=== PATIENT | female | born 1955 | race Caucasian/White ===

== ENCOUNTER 2018-06-28 13:50 | Inpatient (IN) | payer MEDICARE, MEDICAID ==
[~2018-06-28] VITALS: Ht 170.2 cm; Wt 79.8 kg
[~2018-06-28 13:50] MED LIST: CYCL10TA7 MT; DUR12; ESTR0.6264 MT; HYDR-4009 MT; LEVO137T32 MT; NYSTATIN PO; P20 PO; PANT40TA4 MT; POTA10CA42 MT; PROM25TA13 MT; TC025U80 TP
[2018-06-28] MEDS ORDERED: LORAZEPAM 2MG/ML CPJ IV ONE ×2 (14:15→18:00)
[2018-06-28] MEDS ORDERED: MORPHINE SULFATE 2 MG/ML CPJ (NOT FOR IM USE) IV ONE (14:15)
[2018-06-28] MEDS ORDERED: DICYCLOMINE HCL 10MG CAPSULE PO ONE (15:00)
[2018-06-28] MEDS ORDERED: MAGNESIUM/ALUMINUM HYDROXIDE/SIMETHICONE 30ML UDC PO ONE (15:00)
[2018-06-28] MEDS ORDERED: VISCOUS LIDOCAINE 2% 15 ML UDC MM PRN (15:00)
[2018-06-28 15:17] LABS: BASOPHILS % 0.7 % (0.0-2.0); EOSINOPHILS % 0.2 % (0.0-5.0); HEMATOCRIT. 41.8 % (36.0-48.0); HEMOGLOBIN. 13.5 g/dL (12.0-16.0); MEAN CORPUSCULAR HEMOGLOBIN 28.2 pg (28.0-32.0); MEAN CORPUSCULAR VOLUME 87.1 fL (81.0-99.0); MEAN PLATELET VOLUME 8.7 fl (7.4-10.4); MONOCYTES % 5.7 % (2.0-8.0); NEUTROPHILS % 79.4 % (40.0-76.0); PLATELET 375 x1000/uL (130-400); RED CELL DISTRIBUTION WIDTH 14.2 % (11.6-14.6)
[2018-06-28 15:33] LABS: CHLORIDE 106 mEq/L (98-107)
[2018-06-28 15:37] LABS: ETHANOL BLOOD < 10 mg/dL
[2018-06-28] MEDS ORDERED: HYDROCODONE/ACETAMINOPHEN 5/325MG TABLET PO ONE (17:15)
[2018-06-28 17:25] LABS: CLARITY URINE CLEAR (CLEAR); COLOR URINE YELLOW (YELLOW); KETONES URINE NEGATIVE (NEGATIVE); LEUKOCYTE ESTERASE URINE TRACE (NEGATIVE); NITRITE URINE NEGATIVE (NEGATIVE); OCCULT BLOOD URINE NEGATIVE (NEGATIVE); PROTEIN URINE NEGATIVE (NEGATIVE); SPECIFIC GRAVITY URINE 1.019 (1.005-1.030); UROBILINOGEN URINE 0.2 E.U./dL (0.2-1.0)
[2018-06-28 17:34] LABS: *AMPHETAMINES SCREEN URINE NEGATIVE (NEGATIVE); *BARBITURATES SCREEN URINE NEGATIVE (NEGATIVE); *BENZODIAZEPINES SCREEN URINE NEGATIVE (NEGATIVE); *COCAINE SCREEN URINE NEGATIVE (NEGATIVE); METHADONE URINE SCREEN NEGATIVE (NEGATIVE)
[2018-06-28 17:35] LABS: CANNABINOID URINE SCREEN NEGATIVE (NEGATIVE); OPIATES URINE SCREEN PRESUMTIVE POSITIVE (NEGATIVE); PHENCYCLIDINE URINE SCREEN NEGATIVE (NEGATIVE)
[2018-06-28] MEDS ORDERED: IBUPROFEN 600MG TABLET PO ONE (18:00)
[2018-06-28] MEDS ORDERED: CLONIDINE 0.1MG TABLET PO PRN (19:45)
[2018-06-28] MEDS ORDERED: ONDANSETRON HCL 4MG/2ML INJ IV PRN (21:51)
[2018-06-28] MEDS ORDERED: HYDROCODONE/ACETAMINOPHEN 10/325MG TABLET PO PRN (21:52)
[2018-06-28 22:00] VITALS: BP 110/71
[2018-06-28] MEDS ORDERED: FURO-151 PO (22:07)
[2018-06-28 22:14] VITALS: BP 110/71
[2018-06-28] MEDS: MORPHINE SULFATE 4 MG/ML CPJ (NOT FOR IM USE) IV PRN (23:29)
[2018-06-28] MEDS: LORAZEPAM 2MG/ML CPJ IV PRN (23:29)
[2018-06-29 04:00] VITALS: BP 94/67
[2018-06-29 08:00] VITALS: BP 118/78
[2018-06-29] MEDS: LORAZEPAM 2MG/ML CPJ IV PRN ×2 (08:22→15:22)
[2018-06-29] MEDS: MORPHINE SULFATE 4 MG/ML CPJ (NOT FOR IM USE) IV PRN ×5 (08:22→23:39)
[2018-06-29 09:48] LABS: BASOPHILS % 1.1 % (0.0-2.0); HEMATOCRIT. 41.7 % (36.0-48.0); HEMOGLOBIN. 13.5 g/dL (12.0-16.0); LYMPHOCYTES % 38.8 % (20.0-50.0); MEAN CORPUSCULAR HEMOGLOBIN 28.5 pg (28.0-32.0); MEAN CORPUSCULAR VOLUME 87.6 fL (81.0-99.0); MEAN PLATELET VOLUME 9.3 fl (7.4-10.4); MONOCYTES % 9.4 % (2.0-8.0); NEUTROPHILS % 47.7 % (40.0-76.0); PLATELET 294 x1000/uL (130-400); RED BLOOD CELL COUNT 4.75 mill/uL (4.2-5.4); RED CELL DISTRIBUTION WIDTH 14.1 % (11.6-14.6)
[2018-06-29 10:11] LABS: CHLORIDE 106 mEq/L (98-107)
[2018-06-29] MEDS: LEVOTHYROXINE SODIUM 137MCG TABLET PO SCH (10:30)
[2018-06-29] MEDS ORDERED: LIDOCAINE HCL 1% 20ML VIAL (Pyxis) INJ ONE (10:42)
[2018-06-29 12:00] VITALS: BP 98/65
[2018-06-29] MEDS ORDERED: PNEUMOCOCCAL 23-VAL P-SAC VAC 0.5 ML IM ONE (12:00)
[2018-06-29] MEDS: PREDNISONE 20MG TABLET PO SCH (12:30)
[2018-06-29 16:00] VITALS: BP 100/74
[2018-06-29 19:33] VITALS: BP 102/61
[2018-06-30 00:59] VITALS: BP 85/51
[2018-06-30] MEDS: MORPHINE SULFATE 4 MG/ML CPJ (NOT FOR IM USE) IV PRN ×2 (03:36→08:10)
[2018-06-30 04:00] VITALS: BP 98/59
[2018-06-30 08:00] VITALS: BP 97/64
[2018-06-30] MEDS: LEVOTHYROXINE SODIUM 137MCG TABLET PO SCH (08:09)
[2018-06-30] MEDS: LORAZEPAM 2MG/ML CPJ IV PRN (08:09)
[2018-06-30] MEDS: PREDNISONE 20MG TABLET PO SCH (08:09)
[2018-06-30 09:56] VITALS: BP 97/64
[2018-07-22] MEDS ORDERED: FENT1PAT3 TP (01:39)
[2018-07-22] MEDS ORDERED: PRED10TA MT (01:39)
== END 2018-06-30 10:40 | disposition home or self-care (01) | DRG 206 ==
LOC: ER 13:50 → EDBEDREQ 16:44 → EDBEDREQTM 16:44 → 7WST 16:58 → EDBEDREQ 17:01 → SUPCPDRO 19:40 → ENRESERV 19:56
PROVIDERS: ADMIT Hospitalist; ATTEND Hospitalist
PROC: 02HV33Z Insertion of Infusion Device into Superior Vena Cava, Percutaneous Approach (ICD-10-PCS; principal; 2018-06-29)
PROC: B5181ZA Fluoroscopy of Superior Vena Cava using Low Osmolar Contrast, Guidance (ICD-10-PCS; 2018-06-29)
PROC: B548ZZA Ultrasonography of Superior Vena Cava, Guidance (ICD-10-PCS; 2018-06-29)
DX: M94.0 Chondrocostal junction syndrome [Tietze] (principal); I25.110 Atherosclerotic heart disease of native coronary artery with unstable angina pectoris; E44.1 Mild protein-calorie malnutrition; G89.4 Chronic pain syndrome; E11.9 Type 2 diabetes mellitus without complications; M19.90 Unspecified osteoarthritis, unspecified site; E03.9 Hypothyroidism, unspecified; M79.7 Fibromyalgia; Z90.710 Acquired absence of both cervix and uterus; Z88.8 Allergy status to other drugs, medicaments and biological substances; Z88.0 Allergy status to penicillin; Z88.6 Allergy status to analgesic agent; Z91.013 Allergy to seafood; Z79.899 Other long term (current) drug therapy; Z88.2 Allergy status to sulfonamides
CPT/HCPCS: 36415; 36569; 71045; 76937; 77001; 80053; 80305; 81003; 82962; 84484; 85025; 93005; 93306; 96374; 96375; 99285; C1725; C1893; G0482; J2060; J2270; J3490; J7512

== ENCOUNTER 2018-08-14 12:56 | Inpatient (IN) | payer MEDICARE, MEDICAID ==
[~2018-08-14] VITALS: Ht 167.6 cm; Wt 81.6 kg
[~2018-08-14 12:56] MED LIST changes: -CYCL10TA7 MT; +CYCL10TA7 PO; -DUR12; -ESTR0.6264 MT; +ESTR0.6264 PO; +FENT1PAT3 TP; -P20 PO; -PANT40TA4 MT; +PANT40TA4 PO; -POTA10CA42 MT; +PRED10TA PO; -PROM25TA13 MT; +PROM25TA13 PO
[2018-08-14] MEDS ORDERED: MORPHINE SULFATE 4 MG/ML CPJ (NOT FOR IM USE) IV ONE ×2 (15:15→17:00)
[2018-08-14 15:34] LABS: BASOPHILS % 0.5 % (0.0-2.0); HEMATOCRIT. 45.7 % (36.0-48.0); HEMOGLOBIN. 14.9 g/dL (12.0-16.0); LYMPHOCYTES % 11.4 % (20.0-50.0); MEAN CORPUSCULAR HEMOGLOBIN 28.6 pg (28.0-32.0); MEAN CORPUSCULAR VOLUME 87.6 fL (81.0-99.0); MEAN PLATELET VOLUME 8.5 fl (7.4-10.4); MONOCYTES % 3.2 % (2.0-8.0); NEUTROPHILS % 84.9 % (40.0-76.0); PLATELET 449 x1000/uL (130-400); RED BLOOD CELL COUNT 5.22 mill/uL (4.2-5.4); RED CELL DISTRIBUTION WIDTH 14.8 % (11.6-14.6)
[2018-08-14 15:35] LABS: CHLORIDE 106 mEq/L (98-107)
[2018-08-14] MEDS: ACETAMINOPHEN 325MG TABLET PO ONE ×2 (16:00→16:01)
[2018-08-14] MEDS ORDERED: HYDROMORPHONE HCL/PF 1MG/ML CPJ IV PRN (20:50)
[2018-08-14] MEDS ORDERED: ACETAMINOPHEN 325MG TABLET PO PRN (21:00)
[2018-08-14] MEDS ORDERED: CLONIDINE 0.1MG TABLET PO PRN (21:00)
[2018-08-14] MEDS ORDERED: HYDROCODONE/ACETAMINOPHEN 10/325MG TABLET PO PRN (21:00)
[2018-08-14] MEDS ORDERED: ONDANSETRON HCL 4MG/2ML INJ IV PRN (21:00)
[2018-08-14 23:00] VITALS: BP 129/63
[2018-08-14] MEDS ORDERED: DEXTROSE 50% WATER 50ML SYRINGE IV PRN (23:15)
[2018-08-14 23:33] VITALS: BP 129/63
[2018-08-14] MEDS: HYDROMORPHONE HCL/PF 2MG/ML CPJ IV PRN (23:42)
[2018-08-15 01:53] VITALS: BP 110/77
[2018-08-15] MEDS: HYDROMORPHONE HCL/PF 2MG/ML CPJ IV PRN ×9 (01:55→23:07)
[2018-08-15 01:57] LABS: CREATINE KINASE 26 IU/L (26-192); CREATINE KINASE MB FRACTION < 1.0 ng/mL (0.5-3.6)
[2018-08-15 04:10] VITALS: BP 112/77
[2018-08-15] MEDS: BLOOD SUGAR DIAGNOSTIC STRIP TEST SCH ×4 (06:53→21:18)
[2018-08-15 07:35] LABS: CHLORIDE 106 mEq/L (98-107)
[2018-08-15 07:44] LABS: CREATINE KINASE 29 IU/L (26-192); CREATINE KINASE MB FRACTION < 1.0 ng/mL (0.5-3.6)
[2018-08-15 08:00] VITALS: BP 106/67
[2018-08-15] MEDS: INSULIN LISPRO 100 UNITS/ML SUBCUT SCH ×4 (08:10→21:00)
[2018-08-15] MEDS: AMLODIPINE 10MG TABLET PO SCH (08:44)
[2018-08-15 10:34] LABS: BASOPHILS % 1.3 % (0.0-2.0); HEMATOCRIT. 42.5 % (36.0-48.0); HEMOGLOBIN. 14.1 g/dL (12.0-16.0); LYMPHOCYTES % 36.3 % (20.0-50.0); MEAN CORPUSCULAR VOLUME 87.7 fL (81.0-99.0); MEAN PLATELET VOLUME 7.9 fl (7.4-10.4); NEUTROPHILS % 49.4 % (40.0-76.0); PLATELET 401 x1000/uL (130-400); RED BLOOD CELL COUNT 4.85 mill/uL (4.2-5.4)
[2018-08-15] MEDS: LEVOTHYROXINE SODIUM 137MCG TABLET PO SCH (10:46)
[2018-08-15] MEDS: PREDNISONE 10MG TABLET PO SCH (10:46)
[2018-08-15 12:00] VITALS: BP 104/67
[2018-08-15] MEDS: CYCLOBENZAPRINE 10MG TABLET PO SCH ×2 (16:42→21:19)
[2018-08-15 20:00] VITALS: BP 154/73
[2018-08-15 23:40] VITALS: BP 106/71
[2018-08-16] MEDS: HYDROMORPHONE HCL/PF 2MG/ML CPJ IV PRN ×4 (01:14→08:29)
[2018-08-16 04:00] VITALS: BP 113/69
[2018-08-16] MEDS: CYCLOBENZAPRINE 10MG TABLET PO SCH (05:34)
[2018-08-16] MEDS: BLOOD SUGAR DIAGNOSTIC STRIP TEST SCH (06:10)
[2018-08-16] MEDS: INSULIN LISPRO 100 UNITS/ML SUBCUT SCH (07:52)
[2018-08-16 08:00] VITALS: BP 113/65
[2018-08-16] MEDS: LEVOTHYROXINE SODIUM 137MCG TABLET PO SCH (08:28)
[2018-08-16] MEDS: AMLODIPINE 10MG TABLET PO SCH ×2 (08:28→08:33)
[2018-08-16] MEDS: PREDNISONE 10MG TABLET PO SCH (08:31)
[2018-08-16 10:54] VITALS: BP 113/65
[2018-08-16 11:30] VITALS: BP 116/53
== END 2018-08-16 11:30 | disposition home or self-care (01) | DRG 311 ==
LOC: ER 13:11 → 7WST 16:33 → ENRESERV 21:15
PROVIDERS: ADMIT Hospitalist; ATTEND Hospitalist
DX: I24.9 Acute ischemic heart disease, unspecified (principal); I10 Essential (primary) hypertension; M79.7 Fibromyalgia; J44.9 Chronic obstructive pulmonary disease, unspecified; E11.9 Type 2 diabetes mellitus without complications; M10.9 Gout, unspecified; M17.0 Bilateral primary osteoarthritis of knee; M32.9 Systemic lupus erythematosus, unspecified; W18.30XA Fall on same level, unspecified, initial encounter; Z96.649 Presence of unspecified artificial hip joint; Z90.49 Acquired absence of other specified parts of digestive tract; Y93.89 Activity, other specified; Y92.89 Other specified places as the place of occurrence of the external cause; Y99.8 Other external cause status; Z88.5 Allergy status to narcotic agent; Z88.2 Allergy status to sulfonamides; Z88.8 Allergy status to other drugs, medicaments and biological substances; Z88.6 Allergy status to analgesic agent; Z91.013 Allergy to seafood
CPT/HCPCS: 36415; 71045; 82550; 82553; 82962; 83880; 84484; 93005; 93970; 96374; 96375; 96376; 99285; C1893; J1170; J2270; J7512

== ENCOUNTER 2018-08-21 04:28 | Emergency (ER) | payer MEDICARE, MEDICAID ==
[~2018-08-21] VITALS: Ht 167.6 cm; Wt 90.0 kg
[2018-08-21 11:17] VITALS: BP 153/87
== END 2018-08-21 11:19 | disposition left against medical advice (07) ==
LOC: ER 04:28
DX: Z76.5 Malingerer [conscious simulation] (principal); R07.89 Other chest pain; R94.31 Abnormal electrocardiogram [ECG] [EKG]; M32.9 Systemic lupus erythematosus, unspecified; I10 Essential (primary) hypertension; E11.9 Type 2 diabetes mellitus without complications
CPT/HCPCS: 93005; 99283

== ENCOUNTER 2019-03-14 13:50 | Inpatient (IN) | payer MEDICARE, MEDICAID ==
[~2019-03-14] VITALS: Ht 170.2 cm; Wt 83.5 kg
[~2019-03-14 13:50] MED LIST changes: -LEVO137T32 MT; +LEVO137T32 PO
[2019-03-14] MEDS ORDERED: NITROGLYCERIN OINT 1GM/INCH UDPKT TD ONE (15:00)
[2019-03-14 15:15] LABS: BASOPHILS % 1.2 % (0.0-2.0); EOSINOPHILS % 0.1 % (0.0-5.0); HEMATOCRIT. 45.4 % (36.0-48.0); LYMPHOCYTES % 15.4 % (20.0-50.0); MEAN CORPUSCULAR HEMOGLOBIN 27.9 pg (28.0-32.0); MEAN CORPUSCULAR VOLUME 84.9 fL (81.0-99.0); MEAN PLATELET VOLUME 8.4 fl (7.4-10.4); MONOCYTES % 4.8 % (2.0-8.0); NEUTROPHILS % 78.5 % (40.0-76.0); PLATELET 446 x1000/uL (130-400); RED BLOOD CELL COUNT 5.35 mill/uL (4.2-5.4); RED CELL DISTRIBUTION WIDTH 17.5 % (11.6-14.6)
[2019-03-14 15:19] LABS: CHLORIDE 109 mEq/L (98-107)
[2019-03-14 15:20] LABS: PROTHROMBIN TIME 10.1 sec (9.6-11.0)
[2019-03-14] MEDS ORDERED: HYDROCODONE/ACETAMINOPHEN 5/325MG TABLET PO ONE (16:15)
[2019-03-14] MEDS ORDERED: IPRATROPIUM/ALBUTEROL 0.5-3(2.5)MG/3ML NEB INH PRN (18:00)
[2019-03-14] MEDS ORDERED: ENOXAPARIN 40MG/0.4ML SYR SUBCUT SCH (18:00)
[2019-03-14] MEDS ORDERED: MAGNESIUM/ALUMINUM HYDROXIDE/SIMETHICONE 30ML UDC PO PRN (18:00)
[2019-03-14] MEDS ORDERED: GUAIFENESIN 200MG/10ML SUGAR FREE UDC PO PRN (18:00)
[2019-03-14] MEDS ORDERED: NA PHOS,M-B/NA PHOS,DI-BA ENEMA 118ML PR PRN (18:00)
[2019-03-14] MEDS ORDERED: HYDRALAZINE 20MG/ML VIAL IV PRN (18:00)
[2019-03-14] MEDS ORDERED: CLONIDINE 0.1MG TABLET PO PRN (18:00)
[2019-03-14] MEDS ORDERED: ACETAMINOPHEN 325MG TABLET PO PRN (18:00)
[2019-03-14] MEDS ORDERED: HYDROMORPHONE HCL/PF 2MG/ML CPJ IV PRN (18:00)
[2019-03-14] MEDS ORDERED: DOCUSATE SODIUM 100MG CAPSULE PO PRN (18:00)
[2019-03-14] MEDS ORDERED: DIPHENHYDRAMINE 50MG/ML VIAL IV PRN (18:00)
[2019-03-14] MEDS: MORPHINE SULFATE 2 MG/ML CPJ (NOT FOR IM USE) IV PRN ×2 (18:24→21:39)
[2019-03-14 21:30] VITALS: BP 108/65
[2019-03-14] MEDS: SODIUM CHLORIDE 0.9% INJ 3ML FLUSH IVF SCH (21:44)
[2019-03-14] MEDS: ENOXAPARIN 30MG/0.3ML SYR SUBCUT SCH (22:00)
[2019-03-14] MEDS ORDERED: MYCOC15 TOP (23:48)
[2019-03-15] VITALS (7 sets, daily range): BP systolic 98–117; BP diastolic 66–86
[2019-03-15 00:06] LABS: CREATINE KINASE 111 IU/L (26-192); CREATINE KINASE MB FRACTION < 1.0 ng/mL (0.5-3.6)
[2019-03-15] MEDS: MORPHINE SULFATE 2 MG/ML CPJ (NOT FOR IM USE) IV PRN ×7 (00:36→22:12)
[2019-03-15] MEDS: ONDANSETRON HCL 4MG/2ML INJ IV PRN ×5 (00:37→22:12)
[2019-03-15] MEDS: SODIUM CHLORIDE 0.9% INJ 3ML FLUSH IVF SCH ×3 (06:54→22:00)
[2019-03-15 09:20] LABS: CHLORIDE 108 mEq/L (98-107)
[2019-03-15 09:23] LABS: BASOPHILS % 0.6 % (0.0-2.0); EOSINOPHILS % 1.5 % (0.0-5.0); HEMATOCRIT. 38.7 % (36.0-48.0); HEMOGLOBIN. 12.8 g/dL (12.0-16.0); LYMPHOCYTES % 28.7 % (20.0-50.0); MEAN CORPUSCULAR HEMOGLOBIN 27.9 pg (28.0-32.0); MEAN CORPUSCULAR VOLUME 84.5 fL (81.0-99.0); MEAN PLATELET VOLUME 8.7 fl (7.4-10.4); MONOCYTES % 10.5 % (2.0-8.0); NEUTROPHILS % 58.7 % (40.0-76.0); PLATELET 377 x1000/uL (130-400); RED BLOOD CELL COUNT 4.58 mill/uL (4.2-5.4); RED CELL DISTRIBUTION WIDTH 17.4 % (11.6-14.6)
[2019-03-15 09:30] LABS: HDL CHOLESTEROL 39 mg/dL (40-59); LDL CHOLESTEROL 126 mg/dL (5-100)
[2019-03-15 09:31] LABS: CREATINE KINASE 22 IU/L (26-192); T4 FREE 0.56 ng/dL (0.76-1.46)
[2019-03-15 09:34] LABS: CREATINE KINASE MB FRACTION < 1.0 ng/mL (0.5-3.6)
[2019-03-15] MEDS: ENOXAPARIN 30MG/0.3ML SYR SUBCUT SCH (10:00)
[2019-03-15] MEDS ORDERED: SODIUM BICARBONATE 4% (2.4MEQ) 5ML VIAL IV ONE (10:48)
[2019-03-15] MEDS ORDERED: LIDOCAINE HCL 1% 20ML VIAL (Pyxis) INJ ONE (10:48)
[2019-03-15] MEDS ORDERED: MORPHINE SULFATE 2 MG/ML CPJ (NOT FOR IM USE) IV PRN (20:30)
[2019-03-15] MEDS: HYDROCODONE/ACETAMINOPHEN 10/325MG TABLET PO PRN (20:55)
[2019-03-16] VITALS: BP 103/63
[2019-03-16] MEDS: MORPHINE SULFATE 2 MG/ML CPJ (NOT FOR IM USE) IV PRN ×7 (01:21→20:53)
[2019-03-16 04:00] VITALS: BP 127/56
[2019-03-16] MEDS: ONDANSETRON HCL 4MG/2ML INJ IV PRN ×3 (04:53→17:44)
[2019-03-16] MEDS: SODIUM CHLORIDE 0.9% INJ 3ML FLUSH IVF SCH ×3 (05:56→20:54)
[2019-03-16 06:29] LABS: BASOPHILS % 0.7 % (0.0-2.0); EOSINOPHILS % 3.5 % (0.0-5.0); HEMATOCRIT. 37.3 % (36.0-48.0); HEMOGLOBIN. 12.2 g/dL (12.0-16.0); LYMPHOCYTES % 37.4 % (20.0-50.0); MEAN CORPUSCULAR VOLUME 85.7 fL (81.0-99.0); MEAN PLATELET VOLUME 8.5 fl (7.4-10.4); MONOCYTES % 10.3 % (2.0-8.0); NEUTROPHILS % 48.1 % (40.0-76.0); PLATELET 324 x1000/uL (130-400); RED BLOOD CELL COUNT 4.36 mill/uL (4.2-5.4); RED CELL DISTRIBUTION WIDTH 17.3 % (11.6-14.6)
[2019-03-16 07:37] LABS: CHLORIDE 108 mEq/L (98-107)
[2019-03-16 08:00] VITALS: BP 96/61
[2019-03-16] MEDS: ENOXAPARIN 40MG/0.4ML SYR SUBCUT SCH (08:34)
[2019-03-16] MEDS: LEVOTHYROXINE SODIUM 137MCG TABLET PO SCH (11:30)
[2019-03-16 12:00] VITALS: BP 108/78
[2019-03-16 16:00] VITALS: BP 126/52
[2019-03-16] MEDS: HYDROCODONE/ACETAMINOPHEN 10/325MG TABLET PO PRN ×2 (16:07→22:27)
[2019-03-16 20:00] VITALS: BP 101/54
[2019-03-17] VITALS: BP 110/60
[2019-03-17] MEDS: ONDANSETRON HCL 4MG/2ML INJ IV PRN ×3 (00:09→13:06)
[2019-03-17] MEDS: MORPHINE SULFATE 2 MG/ML CPJ (NOT FOR IM USE) IV PRN ×6 (00:10→16:54)
[2019-03-17 04:00] VITALS: BP 115/65
[2019-03-17] MEDS: SODIUM CHLORIDE 0.9% INJ 3ML FLUSH IVF SCH (06:43)
[2019-03-17 08:00] VITALS: BP 95/55
[2019-03-17] MEDS: LEVOTHYROXINE SODIUM 137MCG TABLET PO SCH (09:54)
[2019-03-17] MEDS: ENOXAPARIN 40MG/0.4ML SYR SUBCUT SCH (09:54)
[2019-03-17] MEDS: HYDROCODONE/ACETAMINOPHEN 10/325MG TABLET PO PRN (11:04)
[2019-03-17 12:00] VITALS: BP 120/45
[2019-03-17 16:00] VITALS: BP 93/65
[2019-03-17 17:54] VITALS: BP 93/65
== END 2019-03-17 19:05 | disposition home or self-care (01) | DRG 392 ==
LOC: ER 17:21 → EDBEDREQ 17:25 → EDBEDREQTM 17:25 → 7WST 17:30 → ENRESERV 20:00
PROVIDERS: ADMIT Internal Medicine; ATTEND Internal Medicine
PROC: 02HV33Z Insertion of Infusion Device into Superior Vena Cava, Percutaneous Approach (ICD-10-PCS; principal; 2019-03-15)
PROC: B5181ZA Fluoroscopy of Superior Vena Cava using Low Osmolar Contrast, Guidance (ICD-10-PCS; 2019-03-15)
PROC: B548ZZA Ultrasonography of Superior Vena Cava, Guidance (ICD-10-PCS; 2019-03-15)
DX: K21.9 Gastro-esophageal reflux disease without esophagitis (principal); M32.9 Systemic lupus erythematosus, unspecified; E03.9 Hypothyroidism, unspecified; G89.4 Chronic pain syndrome; J44.9 Chronic obstructive pulmonary disease, unspecified; E78.00 Pure hypercholesterolemia, unspecified; K76.0 Fatty (change of) liver, not elsewhere classified; M06.9 Rheumatoid arthritis, unspecified; M19.90 Unspecified osteoarthritis, unspecified site; Z96.649 Presence of unspecified artificial hip joint; M79.7 Fibromyalgia; Z87.891 Personal history of nicotine dependence; Z88.6 Allergy status to analgesic agent; Z79.899 Other long term (current) drug therapy; Z90.49 Acquired absence of other specified parts of digestive tract; Z82.49 Family history of ischemic heart disease and other diseases of the circulatory system; Z88.0 Allergy status to penicillin; Z88.8 Allergy status to other drugs, medicaments and biological substances; Z91.013 Allergy to seafood
CPT/HCPCS: 36415; 36569; 36573; 71045; 76700; 80048; 80061; 82550; 82553; 83880; 84439; 84443; 84484; 85651; 93005; 93306; 96374; 96375; 99285; C1725; C1893; J1650; J2270; J2405; J3490

== ENCOUNTER 2019-04-17 09:20 | Inpatient (IN) | payer MEDICARE, MEDICAID ==
[~2019-04-17] VITALS: Ht 170.2 cm; Wt 59.9 kg
[~2019-04-17 09:20] MED LIST changes: -ESTR0.6264 PO; +MYCOC15 TOP; -NYSTATIN PO
[2019-04-17] MEDS ORDERED: MORPHINE SULFATE 4 MG/ML CPJ (NOT FOR IM USE) IV STA (10:32)
[2019-04-17] MEDS ORDERED: PREDNISONE 10MG TABLET PO ONE (10:45)
[2019-04-17 12:06] LABS: BASOPHILS % 1.2 % (0.0-2.0); EOSINOPHILS % 1.7 % (0.0-5.0); HEMATOCRIT. 37.7 % (36.0-48.0); HEMOGLOBIN. 12.2 g/dL (12.0-16.0); LYMPHOCYTES % 23.5 % (20.0-50.0); MEAN CORPUSCULAR HEMOGLOBIN 27.6 pg (28.0-32.0); MEAN CORPUSCULAR VOLUME 85.3 fL (81.0-99.0); MEAN PLATELET VOLUME 8.6 fl (7.4-10.4); MONOCYTES % 9.1 % (2.0-8.0); NEUTROPHILS % 64.5 % (40.0-76.0); PLATELET 516 x1000/uL (130-400); RED BLOOD CELL COUNT 4.42 mill/uL (4.2-5.4); RED CELL DISTRIBUTION WIDTH 16.5 % (11.6-14.6)
[2019-04-17 12:14] LABS: CHLORIDE 109 mEq/L (98-107)
[2019-04-17] MEDS ORDERED: POTASSIUM-SODIUM PHOSPHATE POWDER PACKET PO SCH (12:45)
[2019-04-17] MEDS ORDERED: MORPHINE SULFATE 4 MG/ML CPJ (NOT FOR IM USE) IV ONE (12:45)
[2019-04-17] MEDS ORDERED: CLONIDINE 0.1MG TABLET PO PRN (16:00)
[2019-04-17] MEDS ORDERED: ACETAMINOPHEN 325MG TABLET PO PRN (16:00)
[2019-04-17] MEDS ORDERED: IPRATROPIUM/ALBUTEROL 0.5-3(2.5)MG/3ML NEB INH PRN (16:00)
[2019-04-17] MEDS ORDERED: GUAIFENESIN 200MG/10ML SUGAR FREE UDC PO PRN (16:00)
[2019-04-17] MEDS ORDERED: DIPHENHYDRAMINE 50MG/ML VIAL IV PRN (16:00)
[2019-04-17] MEDS ORDERED: MAGNESIUM/ALUMINUM HYDROXIDE/SIMETHICONE 30ML UDC PO PRN (16:00)
[2019-04-17] MEDS ORDERED: MORPHINE SULFATE 4 MG/ML CPJ (NOT FOR IM USE) IV PRN (16:00)
[2019-04-17] MEDS: ONDANSETRON HCL 4MG/2ML INJ IV PRN (16:40)
[2019-04-17] MEDS ORDERED: METHYLPREDNISOLONE SOD SUCC 40 MG/ML VIAL IV ONE (17:15)
[2019-04-17] MEDS ORDERED: TEMAZEPAM 15MG CAPSULE PO PRN (17:30)
[2019-04-17] MEDS: HYDROCODONE/ACETAMINOPHEN 10/325MG TABLET PO PRN (19:09)
[2019-04-17] MEDS: MORPHINE SULFATE 4 MG/ML CPJ (NOT FOR IM USE) IV PRN (22:07)
[2019-04-17 23:58] VITALS: BP 130/80
[2019-04-18] MEDS ORDERED: METHYLPREDNISOLONE SOD SUCC 40 MG/ML VIAL IV NR (00:30)
[2019-04-18] MEDS ORDERED: POTASSIUM CHLORIDE 20MEQ TABLET SR PO NR (00:30)
[2019-04-18] MEDS ORDERED: ESTR0.6264 PO (00:34)
[2019-04-18] MEDS ORDERED: FURO-151 PO (00:37)
[2019-04-18] MEDS ORDERED: CYCL10TA7 PO (00:37)
[2019-04-18] MEDS: PANTOPRAZOLE 40MG DR TABLET PO SCH ×2 (01:25→08:43)
[2019-04-18] MEDS: SODIUM CHLORIDE 0.9% INJ 3ML FLUSH IVF SCH ×2 (01:26→06:15)
[2019-04-18] MEDS: HYDROCODONE/ACETAMINOPHEN 10/325MG TABLET PO PRN ×2 (01:26→10:57)
[2019-04-18] MEDS: MORPHINE SULFATE 4 MG/ML CPJ (NOT FOR IM USE) IV PRN ×3 (02:14→10:21)
[2019-04-18 04:00] VITALS: BP 93/61
[2019-04-18] MEDS: ONDANSETRON HCL 4MG/2ML INJ IV PRN (06:15)
[2019-04-18 07:25] LABS: CHLORIDE 108 mEq/L (98-107)
[2019-04-18] MEDS ORDERED: LEVOTHYROXINE SODIUM 137MCG TABLET PO SCH (07:40)
[2019-04-18 08:13] VITALS: BP 104/68
[2019-04-18 10:57] VITALS: BP 121/69
== END 2019-04-18 12:25 | disposition left against medical advice (07) | DRG 547 ==
LOC: ER 09:20 → 7WST 13:18 → EDBEDREQ 13:36 → CANRESERV 19:38 → ENRESERV 19:38 → CANRESERV 19:50 → ENRESERV 19:50 → CANRESERV 20:05 → ENRESERV 20:17 → CANRESERV 20:17 → ENRESERV 22:37 → 7WST 04-18 00:28
PROVIDERS: ADMIT Internal Medicine; ATTEND Internal Medicine
DX: M06.9 Rheumatoid arthritis, unspecified (principal); R07.89 Other chest pain; M32.9 Systemic lupus erythematosus, unspecified; E03.9 Hypothyroidism, unspecified; F41.1 Generalized anxiety disorder; G89.4 Chronic pain syndrome; I10 Essential (primary) hypertension; J44.9 Chronic obstructive pulmonary disease, unspecified; K21.9 Gastro-esophageal reflux disease without esophagitis; M19.90 Unspecified osteoarthritis, unspecified site; M79.7 Fibromyalgia; Z96.643 Presence of artificial hip joint, bilateral; Z83.3 Family history of diabetes mellitus; Z87.891 Personal history of nicotine dependence; Z90.710 Acquired absence of both cervix and uterus; Z88.8 Allergy status to other drugs, medicaments and biological substances; Z90.49 Acquired absence of other specified parts of digestive tract
CPT/HCPCS: 36415; 71045; 80051; 83735; 83880; 84484; 85651; 93005; 96374; 96375; 99285; C1893; J1200; J2270; J2405; J2920; J7512

== ENCOUNTER 2019-08-18 02:29 | Emergency (ER) | payer MEDICARE, MEDICAID ==
[~2019-08-18] VITALS: Ht 165.1 cm; Wt 77.0 kg
[~2019-08-18 02:29] MED LIST changes: +ESTR0.6264 PO; +FURO-151 PO; -TC025U80 TP
[2019-08-18] MEDS ORDERED: ACETAMINOPHEN 500MG TABLET PO ONE (03:00)
[2019-08-18] MEDS ORDERED: KETAMINE HCL 50 MG/ML 10ML IM ONE (03:30)
[2019-08-18] MEDS: LIDOCAINE 5% PATCH TOP SCH ×2 (04:35→09:06)
[2019-08-18 10:25] VITALS: BP 150/90
== END 2019-08-18 10:30 | disposition home or self-care (01) ==
LOC: ER 02:29
DX: G89.29 Other chronic pain (principal); M25.562 Pain in left knee; M25.561 Pain in right knee; M25.512 Pain in left shoulder; Z91.81 History of falling; Z76.5 Malingerer [conscious simulation]; R45.851 Suicidal ideations; F60.89 Other specific personality disorders; M48.56XA Collapsed vertebra, not elsewhere classified, lumbar region, initial encounter for fracture; M48.54XA Collapsed vertebra, not elsewhere classified, thoracic region, initial encounter for fracture; M79.7 Fibromyalgia
CPT/HCPCS: 72128; 72131; 73562; 96372; 99284; J3490

== ENCOUNTER 2020-07-01 11:33 | Emergency (ER) | payer MEDICARE, MEDICAID ==
[~2020-07-01] VITALS: Ht 160 cm; Wt 61.0 kg
[2020-07-01] MEDS ORDERED: ACETAMINOPHEN 325MG TABLET PO ONE (13:30)
[2020-07-01 15:41] LABS: BASOPHILS % 1.3 % (0.0-2.0); EOSINOPHILS % 2.8 % (0.0-5.0); HEMOGLOBIN. 11.6 g/dL (12.0-16.0); LYMPHOCYTES % 24.2 % (20.0-50.0); MEAN CORPUSCULAR HEMOGLOBIN 25.8 pg (28.0-32.0); MEAN CORPUSCULAR VOLUME 80.2 fL (81.0-99.0); MEAN PLATELET VOLUME 8.4 fl (7.4-10.4); NEUTROPHILS % 61.7 % (40.0-76.0); PLATELET 612 x1000/uL (130-400); RED BLOOD CELL COUNT 4.49 mill/uL (4.2-5.4); RED CELL DISTRIBUTION WIDTH 17.5 % (11.6-14.6)
[2020-07-01] MEDS ORDERED: MORPHINE SULFATE 10 MG/ML CPJ IM ONE (15:45)
[2020-07-01 15:48] LABS: CLARITY URINE CLEAR (CLEAR); COLOR URINE YELLOW (YELLOW); KETONES URINE TRACE (NEGATIVE); LEUKOCYTE ESTERASE URINE 1+ (NEGATIVE); NITRITE URINE NEGATIVE (NEGATIVE); OCCULT BLOOD URINE NEGATIVE (NEGATIVE); PH URINE 6.5 (4.5-8.0); PROTEIN URINE NEGATIVE (NEGATIVE); SPECIFIC GRAVITY URINE 1.016 (1.005-1.030)
[2020-07-01 16:38] LABS: CHLORIDE 110 mEq/L (98-107)
[2020-07-01 17:02] VITALS: BP 102/60
== END 2020-07-01 20:02 | disposition home or self-care (01) ==
LOC: ER 11:45
DX: R05 Cough (principal); R06.02 Shortness of breath; J44.9 Chronic obstructive pulmonary disease, unspecified; Z90.710 Acquired absence of both cervix and uterus; Z79.899 Other long term (current) drug therapy
CPT/HCPCS: 36415; 71045; 80053; 81003; 85025; 96372; 99284; J2270